=== PATIENT | female | born 1955 | race Caucasian/White ===

== ENCOUNTER 2018-10-05 18:30 | Inpatient (IN) | payer MEDICARE | END 2018-10-08 23:19 | LOC: EDH 18:30 → EDHIP 20:40 → 4AH 21:27 | DX: S72.402A Unspecified fracture of lower end of left femur, initial encounter for closed fracture (principal); M25.562 Pain in left knee; W19.XXXA Unspecified fall, initial encounter ==

== ENCOUNTER 2018-11-05 08:00 | Inpatient (IN) | payer MEDICARE ==
[~2018-11-05] VITALS: Ht 167.6 cm; Wt 98.9 kg
[~2018-11-05 08:00] MED LIST: LEVO150T11 PO
[2018-11-05 12:50] VITALS: BP 140/78
[2018-11-05 12:55] LABS: CREATININE 1.2 mg/dL (0.5-1.5); POTASSIUM 4.4 mmol/L (3.5-5.1)
[2018-11-05 13:00] LABS: BASOPHILS % (AUTO) 0.9 % (0.0-5.0); EOSINOPHILS % (AUTO) 1.3 % (0.0-8.0); HEMATOCRIT 37.4 % (36-48); LYMPHOCYTES % (AUTO) 16.8 % (21.0-51.0); MEAN CORPUSCULAR HEMOGLOBIN 27.5 pg (27.0-33.0); MEAN CORPUSCULAR HGB CONC 31.8 g/dL (32.0-36.0); MEAN CORPUSCULAR VOLUME 86.7 fL (79-99); MONOCYTES % (AUTO) 10.7 % (3.0-13.0); NEUTROPHILS % (AUTO) 70.3 % (40.0-77.0); PLATELET COUNT (AUTO) 310 K/uL (130-400); RED BLOOD CELL COUNT(AUTO) 4.32 MIL/uL (4.00-5.50); RED CELL DISTRIBUTION WIDTH 16.4 % (11.0-15.5); WHITE BLOOD COUNT (AUTO) 5.5 K/uL (4.8-10.8)
[2018-11-05] MEDS ORDERED: NYSTATIN TP (13:43)
[2018-11-05] MEDS ORDERED: SULF1TAB3 PO (13:43)
[2018-11-05] MEDS ORDERED: L.AC1CAP6 PO (13:43)
[2018-11-05] MEDS ORDERED: ACET-2123 PO (13:43)
--- NOTE | 2018-11-05 14:00 | NUR ---
LABS CALLED TO INFORM DR. BARTLETT OF CRITICAL LABS. NO ANSWER. LEFT VOICE MAIL X2.
[2018-11-05 14:01] LABS: INR > 7.00 (0.85-1.15); PROTHROMBIN TIME > 63.0 SEC (9.6-11.6)
--- NOTE | 2018-11-05 16:24 | NUR ---
labs abnormal PT/INR reported to DR. Ferro further orders given and will be carried out. PT/ INR will be repeated day of surgery , continue will planned surgery
[2018-11-08] VITALS (25 sets, daily range): BP systolic 111–152; BP diastolic 45–76
[2018-11-08] MEDS ORDERED: CEFAZOLIN SODIUM 1 GM VIAL IVP ONE (08:00)
[2018-11-08 09:03] LABS: INR 3.19 (0.85-1.15)
[2018-11-08] MEDS ORDERED: LACTATED RINGERS 1000ML 1,000 ML IV ONE (09:07)
--- NOTE | 2018-11-08 09:12 | NUR ---
CONSULT: DR. BARTLETT NOTIFIED OF RESULTS PT 32.0 AND INR 3.19, ORDERS GIVEN.
[2018-11-08] MEDS ORDERED: MIDAZOLAM HCL 1 MG/ML 2ML VIAL ONE (09:27)
[2018-11-08] MEDS ORDERED: SUCCINYLCHOLINE 200MG/10ML SYR ONE (09:27)
[2018-11-08] MEDS ORDERED: PROPOFOL 10 MG/ML 20ML VIAL IV ONE (09:28)
[2018-11-08] MEDS ORDERED: FENTANYL CITRATE PF 50 MCG/1 ML 2ML VIAL ONE ×2 (09:28→12:14)
[2018-11-08] MEDS ORDERED: DEXAMETHASONE SOD PHOSPHATE 10MG/ML 1ML VIAL ONE (09:32)
[2018-11-08] MEDS ORDERED: ONDANSETRON HCL 4 MG/2 ML VIAL ONE (09:33)
[2018-11-08] MEDS ORDERED: WARF5TAB76 PO (10:38)
[2018-11-08] MEDS: CEFAZOLIN SODIUM 1 GM VIAL ONE ×2 (10:43→11:30)
[2018-11-08] MEDS ORDERED: VANCOMYCIN HCL 1 GM VIAL ONE (11:23)
[2018-11-08] MEDS: SODIUM CHLORIDE 0.9% 1000ML 1,000 ML IV SCH ×2 (13:11→23:13)
[2018-11-08] MEDS ORDERED: HYDROCODONE/ACETAMINOPHEN 5/325 MG TAB PO PRN ×2 (13:15)
[2018-11-08] MEDS ORDERED: DiphenhydrAMINE HCL 50 MG/ML VIAL IVP PRN (13:15)
[2018-11-08] MEDS ORDERED: DIPHENHYDRAMINE HCL 25 MG CAPSULE PO PRN (13:15)
[2018-11-08] MEDS ORDERED: PROMETHAZINE HCL 25 MG/ML 1ML AMPULE IM PRN (13:15)
[2018-11-08] MEDS ORDERED: LIDOCAINE HCL-MPF 1% 2ML VIAL IV PRN (13:15)
[2018-11-08] MEDS ORDERED: TEMAZEPAM 15 MG CAPSULE PO PRN (13:15)
[2018-11-08] MEDS ORDERED: FERROUS FUMARATE 324 MG TABLET PO PRN (13:15)
[2018-11-08] MEDS ORDERED: CALCIUM CARBONATE 500 MG TABLET PO PRN (13:15)
[2018-11-08] MEDS ORDERED: POTASSIUM CHLORIDE 20MEQ/100ML 100 ML IV PRN (13:15)
[2018-11-08] MEDS ORDERED: KETOROLAC TROMETHAMINE 15MG/ML IV PRN (13:15)
[2018-11-08] MEDS ORDERED: POTASSIUM CHLORIDE 20 MEQ ERTAB PO PRN (13:15)
[2018-11-08] MEDS ORDERED: POTASSIUM CHLORIDE 10% ELIXIR 20 MEQ/15 ML UDCUP PO PRN (13:15)
--- NOTE | 2018-11-08 13:55 | NUR ---
POST OP PT ARRIVED TO FLOOR FROM PACU, PT IS AWAKE, ALERT AND ORIENTED X3, VOICES NO COMPLAINTS OF PAIN, LEFT THIGH /KNEE SUDHAKAR BANDAGE WITH HV DRAIN IN PLACE, PATENT AND COMPRESSED. GOOD CMS. ORIENTED TO ROOM, CALL LATHAM WITHIN REACH. Addendum: 11/08/18 at 1726 by OPAL ROSADO RN ADDENDUM, NOTICE RIGHT ARM HAS A TREMOR, STATES HAS HAD FOR A LONG TIME. HAS HAD PRIOR TO SURGERY.
--- NOTE | 2018-11-08 15:50 | NUR ---
INITIAL- MET W PATIENT, ALONE, AAOX3 KNOWN TO THIS CM PT LIVES W SPOUSE WHO DOES NOT GO OUT MUCH AND HAS DIFFICULTY CARING FOR HIMSELF. PT LIVES IN MOBILE HOME W 4+ STEPS INTO HOME, HAS BENCH IN SHOWER. IORP TO FRACTURE FEMUR USED A CANE, CURRENTLY HAS A WKR & W/CHAIR PT STILL HAS DIFFICULTY ON THE STAIRS. DEPSITE TIME SPENT AT [facility] [place] [facility]. WAS SENT HOME FROM THERE WITH [facility] ; COMPANY IS AWARE AND ABLE TO RESUMES SERVICES AT DISCHARGE PT WITH + CULTURE FORM SURGICAL INCISION. ASKED KELLI JOSEPH TO ADVISED HIM OF THE CULTURE, WILLL WAIT TO SEND REFERRAL. PT AGREEABLE TO GO TO A FACLITY IF ORDERED BY Addendum: 11/08/18 at 1626 by BLAISE POWELL RN CM Amended: Links added.
--- NOTE | 2018-11-08 16:14 | NUR ---
CALL TO DR. BARTLETT T/C PLACED TO DR. BARTLETT, INFORMED HIM OF GRAM STAIN RESULTS, STATES IS AWARE OF RESULTS. NO FURTHER ORDERS.
[2018-11-08] MEDS: ASPIRIN 325 MG TABLET PO SCH (17:08)
[2018-11-08] MEDS: CEFAZOLIN 3GM /D5W 100ML 100 ML IV SCH (17:51)
[2018-11-08] MEDS ORDERED: FAMOTIDINE 20MG TAB 20 MG TAB PO SCH (21:00)
[2018-11-08] MEDS ORDERED: L.acidoph & Paracasei,B.lactis (Probiotic) 1 EACH PO SCH (21:00)
[2018-11-08] MEDS: NYSTATIN 15 GM POWDER TP SCH (21:00)
[2018-11-09] MEDS: CEFAZOLIN 3GM /D5W 100ML 100 ML IV SCH ×3 (02:01→18:42)
[2018-11-09 03:56] VITALS: BP 108/53
[2018-11-09] MEDS ORDERED: LEVOTHYROXINE 150 MCG TABLET PO SCH (06:30)
[2018-11-09 07:54] VITALS: BP 120/57
[2018-11-09] MEDS ORDERED: ENOXAPARIN SODIUM 40 MG/0.4 ML SYRINGE SQ SCH (09:00)
[2018-11-09] MEDS ORDERED: POLYETHYLENE GLYCOL 3350 17 GM POWD.PACK PO SCH (09:00)
[2018-11-09] MEDS: NYSTATIN 15 GM POWDER TP SCH ×2 (09:37→17:04)
[2018-11-09] MEDS: ASPIRIN 325 MG TABLET PO SCH ×2 (09:41→17:01)
[2018-11-09] MEDS: SODIUM CHLORIDE 0.9% 1000ML 1,000 ML IV SCH (09:48)
[2018-11-09 11:41] VITALS: BP 112/49
[2018-11-09] MEDS ORDERED: PSYLLIUM SEED 1 EACH PACKET PO SCH (12:00)
[2018-11-09 16:51] VITALS: BP 126/56
[2018-11-09] MEDS ORDERED: TYL3 PO (18:35)
[2018-11-09] MEDS ORDERED: SULF1TAB3 PO (18:35)
--- NOTE | 2018-11-09 19:00 | NUR ---
DISCHARGE NURSE REPORT GIVEN [facility] NURSE KELLI LEE [phone]. INFORMED KELLI LEE OF DR. BARTLETT DISCHARGE DISCHARGE ORDERS (ACTIVITY, DRESSING CHANGE, RX, F/U APPT). INFORMED KELLI LEE I WOULD PROVIDE COPY OF DR. LUCIO'S DISCHARGE ORDERS TO PATIENT AND INSTRUCT PATIENT TO PROVIDE COPY TO HOME HEALTH NURSE. DISCHARGE INSTRUCTIONS PROVIDED TO PATIENT REGARDING DR. BARTLETT DISCHARGE ORDERS (DRESSING CHANGES, RX (BACTRIM, TYLENOL #3), ACTIVITY). INFORMED PATIENT FOLLOW-UP APPOINTMENT PENDING TO BE SCHEDULED DR. BARTLETT OFFICE CLOSED AT THIS TIME. PATIENT VERBALIZED UNDERSTANDING OF DISCHARGE ORDERS. REMOVED LEFT KNEE HEMOVAC, DRAIN CATHETER TIP INTACT. PERFORMED LEFT KNEE DRESSING CHANGE. LEFT KNEE INCISION APPROXIMATED, ASYMPTOMATIC, NO DRAINAGE NOTED, 21 ROSA ISELA INTACT. CLEANSED LEFT KNEE WITH BETADINE, COVERED WITH STERILE 4X4 GAUZE, AND SECURED WITH MEDIPORE TAPE. REAPPLIED SUDHAKAR BANDAGE TO LEFT AFTER DRESSING CHANGE. REMOVED 20G IV FROM RIGHT HAND, CATHETER TIP INTACT. REMOVED 20G IV FROM RIGHT WRIST, CATHETER TIP INTACT. PATIENT REPORTS NO PAIN AND WAITING TO BE PICKED UP BY FAMILY.
[2018-11-09 19:07] VITALS: BP 107/54
[2018-11-10] MEDS ORDERED: BISACODYL 5 MG TABLET.DR PO PRN (13:15)
[2018-11-11] MEDS ORDERED: BISACODYL 10 MG SUPP.RECT RC PRN (13:15)
== END 2018-11-09 20:25 | disposition home health service (06) | DRG 903 ==
LOC: EDSTATUS 15:00 → DAHIP 11-08 07:15 → 4AH 11-08 13:26
PROVIDERS: ADMIT Orthopaedic Surgery; ATTEND Orthopaedic Surgery
PROC: 0JBM0ZZ Excision of Left Upper Leg Subcutaneous Tissue and Fascia, Open Approach (ICD-10-PCS; principal; 2018-11-08 11:00)
PROC: 30233K1 Transfusion of Nonautologous Frozen Plasma into Peripheral Vein, Percutaneous Approach (ICD-10-PCS; 2018-11-08 11:00)
DX: T81.89XA Other complications of procedures, not elsewhere classified, initial encounter (principal); Y83.8 Other surgical procedures as the cause of abnormal reaction of the patient, or of later complication, without mention of misadventure at the time of the procedure; M19.90 Unspecified osteoarthritis, unspecified site; E03.9 Hypothyroidism, unspecified; Z96.653 Presence of artificial knee joint, bilateral; E66.01 Morbid (severe) obesity due to excess calories; Z68.35 Body mass index [BMI] 35.0-35.9, adult; Y92.89 Other specified places as the place of occurrence of the external cause; Z98.891 History of uterine scar from previous surgery; Z90.49 Acquired absence of other specified parts of digestive tract; Z98.51 Tubal ligation status; Z98.84 Bariatric surgery status; Z79.899 Other long term (current) drug therapy; Z87.81 Personal history of (healed) traumatic fracture; Z83.3 Family history of diabetes mellitus; Z82.49 Family history of ischemic heart disease and other diseases of the circulatory system; Z87.891 Personal history of nicotine dependence
CPT/HCPCS: 36415; 36430; 80048; 85025; 85610; 86850; 86900; 86901; 86927; 87070; 87076; 87077; 87186; 87205; 93005; G0378; J0330; J0690; J1100; J1650; J2250; J2405; J2704; J3010; J3370; J7030; J7120; P9017

== ENCOUNTER 2018-12-28 22:04 | Emergency (ER) | payer MEDICARE ==
[~2018-12-28 22:04] MED LIST changes: +ACET-2123 PO; +L.AC1CAP6 PO; +NYSTATIN TP; +SULF1TAB3 PO; +TYL3 PO
[2018-12-28 22:58] LABS: BASOPHILS % (AUTO) 1.3 % (0.0-5.0); EOSINOPHILS % (AUTO) 0.5 % (0.0-8.0); HEMATOCRIT 37.2 % (36-48); LYMPHOCYTES % (AUTO) 6.6 % (21.0-51.0); MEAN CORPUSCULAR HEMOGLOBIN 26.2 pg (27.0-33.0); MEAN CORPUSCULAR HGB CONC 31.5 g/dL (32.0-36.0); MEAN CORPUSCULAR VOLUME 83.1 fL (79-99); MONOCYTES % (AUTO) 6.2 % (3.0-13.0); NEUTROPHILS % (AUTO) 85.4 % (40.0-77.0); PLATELET COUNT (AUTO) 226 K/uL (130-400); RED BLOOD CELL COUNT(AUTO) 4.48 MIL/uL (4.00-5.50); RED CELL DISTRIBUTION WIDTH 17.9 % (11.0-15.5); WHITE BLOOD COUNT (AUTO) 7.6 K/uL (4.8-10.8)
[2018-12-28] MEDS ORDERED: KETOROLAC TROMETHAMINE 30MG/ML ONE (22:59)
[2018-12-28] MEDS ORDERED: SODIUM CHLORIDE 0.9% 1000ML 1,000 ML IV ONE (23:00)
[2018-12-28 23:08] LABS: INR 0.99 (0.85-1.15); PARTIAL THROMBOPLASTIN TIME 22.6 SEC (26.3-35.5); PROTHROMBIN TIME 10.4 SEC (9.6-11.6)
[2018-12-28 23:23] LABS: CREATININE 1.1 mg/dL (0.5-1.5); POTASSIUM 4.9 mmol/L (3.5-5.1)
[2018-12-28 23:28] LABS: ALBUMIN 3.3 g/dL (3.5-5.0); BILIRUBIN,TOTAL 0.5 mg/dL (0.2-1.0); TOTAL PROTEIN, SERUM 8.1 g/dL (6.0-8.3)
[2018-12-28] MEDS ORDERED: IOHEXOL 350 MG/ML 100ML INFUS..BTL IV ONE (23:44)
[2018-12-28 23:46] LABS: BILIRUBIN,URINE Small (NEGATIVE); COLOR,URINE Dark Yellow (YELLOW); GLUCOSE, URINE (UA) Negative (NEGATIVE); KETONES,URINE Trace mg/dL (NEGATIVE); LEUKOCYTE ESTERASE ,URINE Negative (NEGATIVE); NITRATE,URINE Negative (NEGATIVE); OCCULT BLOOD,URINE Negative (NEGATIVE); PH,URINE 5.5 (5.0-8.0); PROTEIN,URINE POS 1+ mg/dL (NEGATIVE)
[2018-12-28 23:47] LABS: APPEARANCE,URINE CLOUDY (CLEAR)
[2018-12-29 00:10] LABS: BACTERIA,URINE Few /HPF (None Seen); CALCIUM OXALATE CRYSTALS,UR Rare /LPF (None Seen); MUCUS,URINE Few LPF (None Seen); RBC,URINE 0-1 /HPF (0-1); URIC ACID CRYSTALS,URINE Moderate /LPF (None Seen); WBC,URINE 0-1 /HPF (0-1); YEAST,URINE BUDDING Few /HPF (None Seen)
[2018-12-29] MEDS ORDERED: ORPHENADRINE CITRATE 30 MG/ML ML ONE (01:11)
[2018-12-29] MEDS ORDERED: SODIUM CHLORIDE 0.9% 1000ML 1,000 ML IV ONE (01:12)
[2018-12-29] MEDS ORDERED: LIDOCAINE 5% TOPICAL PATCH TP ONE (01:12)
[2018-12-29] MEDS ORDERED: LIDOCAINE PF 2% 5ML ABBOJECT ONE (01:25)
== END 2018-12-29 02:31 | disposition home or self-care (01) ==
LOC: EDH 22:04
DX: M54.5 Low back pain (principal); M62.838 Other muscle spasm; E07.9 Disorder of thyroid, unspecified; Z98.51 Tubal ligation status; Z98.890 Other specified postprocedural states
CPT/HCPCS: 36415; 71045; 71275; 72100; 80053; 81001; 82550; 83605; 84484; 85025; 85378; 85610; 85730; 93005; 96374; 96375; 99285; J1885; J2001; J2360; J7030 ×2; Q9967

== ENCOUNTER → 2019-06-17 | Outpatient (CLI) | payer MEDICARE ==
[~2019-06-17] MED LIST changes: -SULF1TAB3 PO
== END | disposition home or self-care (01) ==
LOC: RAH 09:35
PROVIDERS: ATTEND Internal Medicine Medical Oncology
DX: I82.413 Acute embolism and thrombosis of femoral vein, bilateral (principal)
CPT/HCPCS: 93970